=== PATIENT | female | born 1955 | race Caucasian/White ===

== ENCOUNTER 2020-12-20 10:07 | Day surgery (SDC) | payer MEDICARE ==
[2020-12-18 11:38] VITALS: BMI 30.6
--- NOTE | 2020-12-20 08:40 | P.GSHP ---
History of Present Illness H&P Date: 12/20/20 CHIEF COMPLAINT: Colon screen HISTORY OF PRESENT ILLNESS: The patient is a 65-year-old female who presents for colon screen. Lower endoscopy was offered for further evaluation and management. PAST MEDICAL HISTORY: Please see list. PAST SURGICAL HISTORY: Please see list. MEDICATIONS: Please see list. ALLERGIES: Please see list. SOCIAL HISTORY: No illicit drug use FAMILY HISTORY: No reports of Crohn disease or ulcerative colitis. REVIEW OF ORGAN SYSTEMS: CONSTITUTIONAL: No reports of fevers or chills. PHYSICAL EXAM: VITAL SIGNS: Stable GENERAL: Well-developed pleasant in no acute distress. HEENT: No scleral icterus. Extraocular movements grossly intact. Moist buccal mucosa. NECK: Supple without lymphadenopathy. CHEST: Unlabored respirations. Equal bilateral excursions. CARDIOVASCULAR: Regular rate and rhythm. Distal 2+ pulses. ABDOMEN: Soft, nontender, nondistended. MUSCULOSKELETAL: No clubbing, cyanosis, or edema. ASSESSMENT: 1. Colon screen. PLAN: 1. Recommend proceeding with a lower endoscopy Past Medical History Past Medical History: Fibromyalgia Additional Past Medical History / Comment(s): rt. hip wound, ENDOMETRIOSIS, History of Any Multi-Drug Resistant Organisms: None Reported Past Surgical History: Appendectomy, Back Surgery, Hysterectomy Additional Past Surgical History / Comment(s): VAGINAL CYST REMOVED, SURGERY ON NECK C4-C7 FUSION 2009,LUMBAR SURGERY 1999 THORACIC RIB TAKEN OUT 1987 FOR CURVATURE NECK ELIAZAR HINTON. NECK SURGERY WITH METAL IMPLANT Past Anesthesia/Blood Transfusion Reactions: No Reported Reaction Smoking Status: Former smoker - Past Family History Mother Family Medical History: No Reported History Medications and Allergies Home Medications Medication Instructions Recorded Confirmed Type Naproxen Sodium [Aleve] 660 mg PO DAILY PRN 10/04/15 12/18/20 History Menthol [Biofreeze] 1 applic TOPICAL DAILY PRN 12/18/20 12/18/20 History Allergies Allergy/AdvReac Type Severity Reaction Status Date / Time No Known Allergies Allergy Verified 12/18/20 11:03
[~2020-12-20 10:07] MED LIST: LACTATED RINGERS 1,000 ML IV SCH
[2020-12-20 10:45] VITALS: RESP 16; TEMP 97.5
[2020-12-20] MEDS ORDERED: LIDOCAINE 1% (10MG/ML) FOR IV START INTRADERMA ONE (10:45)
[2020-12-20] MEDS ORDERED: PROPOFOL 10 MG/ML 20 ML VIAL IV ONE (11:01)
[2020-12-20] MEDS ORDERED: ONDANSETRON 4 MG/2 ML VIAL ONE (11:29)
--- NOTE | 2020-12-20 11:43 | P.PCN ---
Date of Procedure: 12/20/20 Description of Procedure: PREOPERATIVE DIAGNOSIS: Colonoscopy screening. POSTOPERATIVE DIAGNOSIS: Colonoscopy screening. Diverticulosis, scattered. Diverticulitis, sigmoid colon OPERATION: Colonoscopy to the cecum, ileocecal valve and appendiceal orifice. SURGEON: Jenae Raymond MD. ANESTHESIA: MAC. INDICATIONS: The patient is a 65-year-old female who presents for colonoscopy screening. Benefits and risks were described and informed consent was obtained. DESCRIPTION OF PROCEDURE: The patient had undergone Sutab prep. The patient had been brought into the operating room and laid in the left lateral decubitus position. After adequate intravenous sedation, the rectum was examined with 2% lidocaine jelly. No external hemorrhoids were encountered. The rectal tone was within normal limits. No lesions were palpated in the rectal vault. An Olympus colonoscope was advanced until the cecum, ileocecal valve and appendiceal orifice were clearly viewed. The prep was good. Scattered diverticulosis was encountered with moderate sigmoid diverticulitis. No large adenomatous polyps were found. R etroflexion of the scope demonstrated grade 1 internal hemorrhoids without active bleeding or inflammation. The colon was desufflated. The patient had tolerated the procedure well. Withdrawal time was over 6 minutes. FINDINGS: Aronchick preparation quality scale 1 (1-5) Internal hemorrhoids, grade 1 No external prolapsed hemorrhoids. No arteriovenous malformations. No adenomatous polyps. Sigmoid diverticulitis RECOMMENDATIONS: Lower endoscopy in 2 years, 2022 for inflammatory colitis Plan - Discharge Summary Discharge Rx Participant: No New Discharge Prescriptions: New Ciprofloxacin HCl [Cipro] 500 mg PO Q12HR #20 tablet metroNIDAZOLE [Flagyl] 500 mg PO TID #30 tab Continue Menthol [Biofreeze] 1 applic TOPICAL DAILY PRN PRN Reason: Pain Discontinued Naproxen Sodium [Aleve] 660 mg PO DAILY PRN PRN Reason: Pain Discharge Medication List Menthol [Biofreeze] 1 applic TOPICAL DAILY PRN 12/18/20 [History] Ciprofloxacin HCl [Cipro] 500 mg PO Q12HR #20 tablet 12/20/20 [Rx] metroNIDAZOLE [Flagyl] 500 mg PO TID #30 tab 12/20/20 [Rx] Follow up Appointment(s)/Referral(s): Jenae Ramyond MD [STAFF PHYSICIAN] - 12/26/20 Patient Instructions/Handouts: *Surgery [facility] - (Anesthesia) Endoscopy Discharge Instructions, Diverticulitis (DC), Diverticulitis Diet (DC), Colonoscopy (DC), Diverticulitis Diet (GEN), Diverticulitis (GEN) Activity/Diet/Wound Care/Special Instructions: Repeat colonoscopy in 2 years, 2022 Discharge Disposition: HOME SELF-CARE
[2020-12-20 12:06] VITALS: BP 176/89; PULSE 68
== END 2020-12-20 12:21 | disposition home or self-care (01) ==
LOC: ORWHC2ENDO 10:07
PROVIDERS: ATTEND Surgery Plastic and Reconstructive Surgery
DX: Z12.11 Encounter for screening for malignant neoplasm of colon (principal); K57.30 Diverticulosis of large intestine without perforation or abscess without bleeding; K57.32 Diverticulitis of large intestine without perforation or abscess without bleeding; K64.0 First degree hemorrhoids; M79.7 Fibromyalgia; Z87.42 Personal history of other diseases of the female genital tract; Z90.89 Acquired absence of other organs; Z90.710 Acquired absence of both cervix and uterus; Z98.1 Arthrodesis status; Z87.891 Personal history of nicotine dependence
CPT/HCPCS: J2704; G0121

== ENCOUNTER → 2021-02-14 | Outpatient (CLI) | payer MEDICARE ==
--- NOTE | 2021-02-14 16:49 | BD ---
EXAMINATION TYPE: Axial Bone Density DATE OF EXAM: 02/14/2021 COMPARISON: 08.28.2012 CLINICAL HISTORY: 65 YR OLD FEMALE....ICD-10 CODE: Z78. 0 ASYMP. MENOPAUSAL STATE Height: 61.2 Weight: 159 FRAX RISK QUESTIONS: Secondary Osteoporosis: YES 3. Menopause before 45: YES Current Tobacco Use: QUIT 2013, SMOKES MARIJUANA RISK FACTORS HISTORY OF: Surgery to Spine FUSION WITH HARDWARE IN LUMBAR SPINE AND CERVICAL SPINE Postmenopausal woman: TOTAL HYST AT AGE 23 YRS OLD Take estrogen and/or progesterone medications: TRIED ....NEVER TOOK Hyperparathyroidism: UNKNOWN Adrenal Insufficiency: UNKNOWN MEDICATIONS: Additional Medications: NOTHING TO NOTE HERE THAT APPLIES Additional History: SPINAL SURGERY, PT IS RT HANDED........WILL SCAN LT FOREARM AND BOTH HIPS. EXAM MEASUREMENTS: Bone mineral densitometry was performed using the [employer] System. HX OF FUSIONS Bone mineral density about the R hip (g/cm2): 0.903 Bone mineral density about the L hip (g/cm2): 0.915 T Score values are as follows: -----R Neck: -1.5 -----L Neck: -1.0 -----R Total: -0.8 -----L Total: -0.7 Bone mineral density has: Increased 1.3% since study of: 08.28.2012 FRAX%s: THERE IS A 8.6% CHANCE FOR A MAJOR OSTEOPOROTIC FX AND A 0.9% FOR HIP......PROBABILITY FOR FX IN 10 YRS TIME Bone mineral density about the L Wrist (g/cm2): 0.693 T Score values are as follows: -----Dist. R+U: 0.2 -----Prox. R+U: 0.6 -----Radius total: 0.5 Bone mineral density FIRST SCAN OF LT FOREARM IMPRESSION: Osteopenia (T Score between -2.5 and -1). There is slightly increased risk of fracture and the patient may be considered for treatment. Re-Screen 2-5 years. NOTE: T-SCORE=SD OF THE YOUNG ADULT MEAN.
--- NOTE | 2021-02-14 17:17 | US ---
EXAMINATION TYPE: US duplex aorta DATE OF EXAM: 02/14/2021 COMPARISON: NONE CLINICAL HISTORY: Z13.6 SCREENING FOR CARDIOVASCULAR DISORDER. EXAM MEASUREMENTS: Abdominal Aorta: Proximal: 2.0 x 2.0cm Mid: 1.5 x 1.5cm Distal: 1.3 x 1.2cm Right Iliac: 0.7 x 0.7cm Left Iliac: 0.7 x 0.7cm IMPRESSION: 1. Aorta tapers normally through its visualized course. No fusiform prominence or abdominal aortic an eurysm.
== END | disposition home or self-care (01) ==
LOC: RADUSWWP 07:35
PROVIDERS: ATTEND Family Medicine
DX: Z13.6 Encounter for screening for cardiovascular disorders (principal); Z85.89 Personal history of malignant neoplasm of other organs and systems
CPT/HCPCS: 77080; 93979

== ENCOUNTER → 2022-01-09 | Outpatient (CLI) | payer MEDICARE ==
--- NOTE | 2022-01-09 11:51 | XR ---
EXAMINATION TYPE: XR lumbosacral spine min 4V DATE OF EXAM: 01/09/2022 CLINICAL HISTORY: Surgery 20 years ago with chronic low back pain TECHNIQUE: Frontal, lateral, and oblique images of the lumbar spine are obtained. COMPARISON: Prior lumbar spine x-ray January 16, 2011 FINDINGS: There are 5 lumbar type vertebral bodies redemonstrated. Persistent levoconvex scoliosis c entered at L1-L2 level. Posterior interpedicular rods and screws with artificial disc material L4-L5 level is redemonstrated. Alignment is somewhat straightened on lateral images similar to prior. Sligh t grade 1 retrolisthesis L2 on L3 is present. Vertebral body heights remain preserved. Mild to modera te disc space narrowing at L2-L3 level with mild to moderate anterior spurring on current study. Obli que image values degraded by underlying scoliosis. Mild to moderate overlying arterial vascular calci fication redemonstrated. Persistent stable 8 mm calcification at left L2 transverse process level cou ld reflect phlebolith versus proximal ureter calculus unchanged from 2011 study. IMPRESSION: As above.
== END | disposition home or self-care (01) ==
LOC: RADXRMAIN 10:43
PROVIDERS: ATTEND Family Medicine
DX: M51.26 Other intervertebral disc displacement, lumbar region (principal); M48.061 Spinal stenosis, lumbar region without neurogenic claudication; M99.73 Connective tissue and disc stenosis of intervertebral foramina of lumbar region
CPT/HCPCS: 72110

== ENCOUNTER → 2022-02-06 | Outpatient (CLI) | payer MEDICARE ==
--- NOTE | 2022-02-07 04:24 | MR ---
EXAMINATION TYPE: MR lumbar spine wo con DATE OF EXAM: 02/06/2022 COMPARISON: 03/30/2010 HISTORY: Lower back pain, radiates into buttocks, prior surgery. Multiplanar multi echo imaging of the lumbar spine with no contrast. There is metal artifact from posterior fusion surgery at L4-5. There is a mild posterior concentric d isc herniation at L2-3. No compression fracture. There is mild disc space narrowing at L4-5 and L5-S1 . No evidence of lumbar paraspinal mass. There is some lateral recess stenosis due to facet arthropat hy at L2-3. IMPRESSION: Mild posterior disc herniation at L2-3 with facet arthropathy and lateral recess stenosis. No fractur e seen. Abnormalities at L2-3 are new compared to old exam.
== END | disposition home or self-care (01) ==
LOC: RADMRIMAIN 19:14
PROVIDERS: ATTEND Neurological Surgery
DX: M51.26 Other intervertebral disc displacement, lumbar region (principal); M47.816 Spondylosis without myelopathy or radiculopathy, lumbar region; Z98.1 Arthrodesis status
CPT/HCPCS: 72148

== ENCOUNTER → 2022-02-11 | Outpatient (CLI) | payer MEDICARE ==
--- NOTE | 2022-02-11 07:54 | CT ---
EXAMINATION TYPE: CT lumbar spine wo con CT DLP: 751.00 mGycm, Automated exposure control for dose reduction was used. DATE OF EXAM: 02/11/2022 7:43 AM COMPARISON: MRI lumbar spine 02/06/2022. CLINICAL INDICATION:Female, 66 years old with history of Z98.1;Back pain TECHNIQUE: Multiple axial images were obtained from the midportion of T11 through the sacroiliac kash nts. Soft tissue and bone windows in coronal and sagittal planes were obtained and reviewed. FINDINGS: Alignment: There are 5 lumbar type vertebral bodies. Levoscoliotic curvature of the lumbar spine with apex at L4. Mild retrolisthesis of L2 on L3. Bone: Postsurgical changes with bilateral pedicular screws and rods involving the L4 and L5 vertebral bodies. Laminectomy changes demonstrated at L4-L5. No evidence of fracture is identified. Discs: T12-L1: No spinal canal or neural foraminal stenosis is identified. L1-L2: No spinal canal or neural foraminal stenosis is identified. L2-L3: Broad-based disc bulge with mild effacement of the anterior thecal sac as demonstrated on rece nt MRI. Facet arthropathy demonstrated with mild foraminal stenosis bilaterally. L3-L4: No spinal canal or neural foraminal stenosis is identified. L4-L5: Mild disc space narrowing identified. No significant central canal stenosis. The neural praveena en are patent bilaterally. L5-S1: No spinal canal or neural foraminal stenosis is identified. Other: Atherosclerotic calcification of the aorta. IMPRESSION: 1. No evidence of fracture of the lumbar spine. 2. Disc bulge with mild spinal canal stenosis at L2-L3. There is facet arthropathy contributing to mi ld bilateral foraminal stenosis at this level. 3. Postsurgical changes L4-L5.
== END | disposition home or self-care (01) ==
LOC: RADCTMAIN 06:59
PROVIDERS: ATTEND Neurological Surgery
DX: M51.26 Other intervertebral disc displacement, lumbar region (principal); M99.73 Connective tissue and disc stenosis of intervertebral foramina of lumbar region; Z98.1 Arthrodesis status
CPT/HCPCS: 72131

== ENCOUNTER 2023-03-06 07:22 | Day surgery (SDC) | payer MEDICARE ==
[2023-03-04 12:32] VITALS: BMI 31.5
[2023-03-06] MEDS ORDERED: LACTATED RINGERS 1,000 ML IV SCH (07:34)
[2023-03-06 07:47] VITALS: RESP 16; TEMP 98.3
[2023-03-06] MEDS ORDERED: PROPOFOL 10 MG/ML 20 ML VIAL IV ONE (08:14)
--- NOTE | 2023-03-06 08:15 | P.GSHP ---
History of Present Illness H&P Date: 03/06/23 CHIEF COMPLAINT: GERD and colon screen HISTORY OF PRESENT ILLNESS: The patient is a 67-year-old male who presents with gastroesophageal reflux disease and need for colon screen. Upper and lower endoscopy were offered for further evaluation and management. PAST MEDICAL HISTORY: Please see list. PAST SURGICAL HISTORY: Please see list. MEDICATIONS: Please see list. ALLERGIES: Please see list. SOCIAL HISTORY: No illicit drug use FAMILY HISTORY: No reports of Crohn disease or ulcerative colitis. REVIEW OF ORGAN SYSTEMS: CONSTITUTIONAL: No reports of fevers or chills. GI: Denies any blood in stools or constipation. PHYSICAL EXAM: VITAL SIGNS: Stable GENERAL: Well-developed pleasant in no acute distress. HEENT: No scleral icterus. Extraocular movements grossly intact. Moist buccal mucosa. NECK: Supple without lymphadenopathy. CHEST: Unlabored respirations. Equal bilateral excursions. CARDIOVASCULAR: Regular rate and rhythm. Distal 2+ pulses. ABDOMEN: Soft, nondistended. MUSCULOSKELETAL: No clubbing, cyanosis, or edema. ASSESSMENT: 1. Gastroesophageal reflux disease 2. Colon screen. PLAN: 1. Recommend proceeding with an upper and lower endoscopy Past Medical History Past Medical History: Fibromyalgia, Hyperlipidemia Additional Past Medical History / Comment(s): hx scoliosis., diverticulosis., occasional nausea, pain clinic procedures., I & D OF abdominal wall abscess with wound care center tx. History of Any Multi-Drug Resistant Organisms: None Reported Past Surgical History: Appendectomy, Back Surgery, Hysterectomy Additional Past Surgical History / Comment(s): VAGINAL CYST, CERVICAL FUSION C4- C7 FUSION WITH HARDWARE 2009, LUMBAR SURGERY WITH HARDWARE 1999.,THORACIC RIB TAKEN OUT 1987 FOR CURVATURE NECK ([facility]). , RECEIVES PAIN PROCEDURE INJECTIONS . Past Anesthesia/Blood Transfusion Reactions: No Reported Reaction Past Psychological History: No Psychological Hx Reported Smoking Status: Former smoker Past Alcohol Use History: None Reported Additional Past Alcohol Use History / Comment(s): QUIT SMOKING 2013 Past Drug Use History: Marijuana Additional Drug Use History / Comment(s): SMOKES MARIJUANA DAILY - Past Family History Mother Family Medical History: No Reported History Medications and Allergies Home Medications Medication Instructions Recorded Confirmed Type Acetaminophen [Tylenol Arthritis] 1,300 mg PO DIRECTED PRN 03/04/23 03/06/23 History Multivit-Min/FA/Lycopen/Lutein 1 each PO DAILY 03/04/23 03/04/23 History [Centrum Silver Tablet] Rosuvastatin [Crestor] 20 mg PO DAILY 03/04/23 03/06/23 History Allergies Allergy/AdvReac Type Severity Reaction Status Date / Time No Known Allergies Allergy Verified 03/04/23 12:08 Surgical - Exam Vital Signs Temp Pulse Resp BP Pulse Ox 98.3 F 70 16 160/89 98 03/06/23 07:38 03/06/23 07:38 03/06/23 07:38 03/06/23 07:38 03/06/23 07:38
--- NOTE | 2023-03-06 08:35 | P.PCN ---
Date of Procedure: 03/06/23 Description of Procedure: PREOPERATIVE DIAGNOSIS: Diverticulitis POSTOPERATIVE DIAGNOSIS: Sigmoid stricture due to sigmoid diverticulosis Sigmoid colon polyp OPERATION: Colonoscopy to the sigmoid colon. SURGEON: Jenae Raymond MD. ANESTHESIA: MAC. INDICATIONS: The patient is a 67-year-old female who presents with change in bowel habits and history of diverticulitis. Her last colonoscopy was more than 5 years ago. Benefits and risks were described and informed consent was obtained. DESCRIPTION OF PROCEDURE: The patient had undergone Sutab prep. She had been brought into the operating room and laid in the left lateral decubitus position. After adequate intravenous sedation, the rectum was examined with 2% lidocaine jelly. No external hemorrhoids were encountered. The rectal tone was loose. No lesions were palpated in the rectal vault. An Olympus colonoscope was advanced along the rect um to a very tortuous sigmoid colon. The scope was then exchanged for a pediatric colonoscope. Despite multiple maneuvers, the sigmoid colon had severe tortuosity preventing further advancement of scope. A stricture was identified along the sigmoidoscope prohibited advancement of the scope. The scope was passed to 30 cm from the anal verge. Inflammatory sigmoid colon polyps were identified. As the patient posed high risk for perforation with persistence of the procedure, the procedure was discontinued. The colon was desufflated. The patient had tolerated the procedure well. Withdrawal time was over 6 minutes. FINDINGS: Aronchik preparation quality scale 2 (1-5) Tortuous sigmoid colon with stricture preventing further advancement of the scope. No external prolapsed hemorrhoids, grade 1 Internal hemorrhoids, grade 1 Scope advanced to sigmoid colon at 30 cm. No arteriovenous malformations. Inflammatory sigmoid colon polyp, 3 mm No focal colitis. RECOMMENDATIONS: Completion of colonoscopy evaluation with barium enema. Repeat colonoscopy 2 years, 2024
--- NOTE | 2023-03-06 08:43 | P.PCN ---
Date of Procedure: 03/06/23 Description of Procedure: PREOPERATIVE DIAGNOSIS: Gastrointestinal bleeding POSTOPERATIVE DIAGNOSIS: Acute gastric ulcers with bleeding Gastroesophageal reflux disease. Gastritis with bleeding Diaphragmatic hiatal hernia OPERATION: Esophagogastroduodenoscopy with biopsies along antrum and duodenum SURGEON: Jenae Raymond MD ANESTHESIA: MAC. INDICATIONS: The patient is a 67-year-old female who presents with GI bleeding. Benefits and risks of the procedure were described. Informed consent was obtained. DESCRIPTION: The patient was brought into the endoscopy suite and laid in the left lateral decubitus position. An Olympus gastroscope was passed along the posterior oropharynx down to the distal esophagus where the squamocolumnar junction was encountered at 35 cm from the incisors. The stomach was entered and no bile reflux was found. Additional findings are listed below. Biopsies with cold forceps were obtained of the antrum. The first through third portion of the duodenum was examined. Retroflexion of the scope confirmed Hill grade 3 lower esophageal valve. The squamocolumnar junction demonstrated LA grade B erosive esophagitis. The stomach was desufflated. The patient tolerated the procedure well. FINDINGS: Squamocolumnar junction 35 cm from the incisors. Diaphragmatic hiatus at 40 cm. Hiatal hernia, 5 cm Hill grade 3 lower esophageal valve. LA grade B erosive esophagitis. Biopsies obtained of the duodenum. Chronic gastritis with biopsies obtained. RECOMMENDATIONS: Omeprazole 40 mg daily Carafate 1 g twice a day Upper endoscopy as needed. Plan - Discharge Summary New Discharge Prescriptions: New Sucralfate [Carafate] 1 gm PO BID #60 tablet Omeprazole [PriLOSEC] 40 mg PO DAILY #90 cap Continue Rosuvastatin [Crestor] 20 mg PO DAILY Acetaminophen [Tylenol Arthritis] 1,300 mg PO DIRECTED PRN PRN Reason: Pain Multivit-Min/FA/Lycopen/Lutein [Centrum Silver Tablet] 1 each PO DAILY Discharge Medication List Acetaminophen [Tylenol Arthritis] 1,300 mg PO DIRECTED PRN 03/04/23 [History] Multivit-Min/FA/Lycopen/Lutein [Centrum Silver Tablet] 1 each PO DAILY 03/04/23 [History] Rosuvastatin [Crestor] 20 mg PO DAILY 03/04/23 [History] Omeprazole [PriLOSEC] 40 mg PO DAILY #90 cap 03/06/23 [Rx] Sucralfate [Carafate] 1 gm PO BID #60 tablet 03/06/23 [Rx] Follow up Appointment(s)/Referral(s): Jenae Raymond MD [STAFF PHYSICIAN] - 03/25/23 11:00 am Patient Instructions/Handouts: Diet for Stomach Ulcers and Gastritis (GEN), Diverticulitis (GEN) Activity/Diet/Wound Care/Special Instructions: Repeat colonoscopy 2 years, 2024 Discharge Disposition: HOME SELF-CARE
[2023-03-06 08:58] VITALS: BP 135/85; PULSE 71
--- NOTE | 2023-03-06 16:39 | FL ---
EXAMINATION TYPE: FL barium enema DATE OF EXAM: 03/06/2023 2:24 PM CLINICAL INDICATION:Female, 67 years old with history of Sigmoid stricture, to sigmoid colon, no bx; COMPARISON: None TECHNIQUE: The procedure was explained and patient history elicited. All patient questions were answ ered prior to beginning. Multiple spot fluoroscopic images of the colon were obtained after the recta l administration of liquid barium as the contrast agent. Multiple postprocedural overhead images, w ere obtained and reviewed. Fluoroscopic time: 1 minute 13 seconds Fluoroscopic images: 0 Radiographs taken: 33 DAP: Not reported by seen [email or web address] FINDINGS: The car worker helper abdominal radiograph demonstrates a normal bowel gas pattern without dilated loo ps of small or large bowel. There is no evidence for organomegaly or pneumoperitoneum. No abnormal calcifications. The visualized osseous structures are intact. Fixation hardware in the lower lumbar spine appears intact. Opacified small bowel limits evaluation the colon. The colon demonstrates normal course and contour without evidence of focal stricture, internal fillin g defects. Few scattered colonic diverticula. Postevacuation images are unremarkable. IMPRESSION: 1. Limited evaluation of the bowel and post procedural imaging due to extension of contrast into the small bowel. No evidence for abnormal stricture or mass lesion within the sigmoid colon. 2. Colonic diverticula.
== END 2023-03-06 09:39 | disposition home or self-care (01) ==
LOC: ORWHC2ENDO 07:22
PROVIDERS: ATTEND Surgery Plastic and Reconstructive Surgery
DX: Z12.11 Encounter for screening for malignant neoplasm of colon (principal); K21.00 Gastro-esophageal reflux disease with esophagitis, without bleeding; K57.30 Diverticulosis of large intestine without perforation or abscess without bleeding; K56.699 Other intestinal obstruction unspecified as to partial versus complete obstruction; K63.5 Polyp of colon; K29.50 Unspecified chronic gastritis without bleeding; K25.4 Chronic or unspecified gastric ulcer with hemorrhage; K44.9 Diaphragmatic hernia without obstruction or gangrene; M79.7 Fibromyalgia; E78.5 Hyperlipidemia, unspecified; Z90.710 Acquired absence of both cervix and uterus; Z90.49 Acquired absence of other specified parts of digestive tract; Z87.891 Personal history of nicotine dependence
CPT/HCPCS: 88305; 74270; 43239; G0104; J2704; 45330; 45378

== ENCOUNTER → 2023-05-20 | Day surgery (SDC) | payer MEDICARE ==
[2023-05-19 09:49] VITALS: BMI 29.2
[~2023-05-20] MED LIST changes: +ALPRAZolam 0.25 MG TAB PO PRN; +ALPRAZolam 0.5 MG TAB PO PRN; +ASPIRIN 325 MG TAB PO STA; +HEPARIN SODIUM 1,000 UN/ML (10ML VL) IV ONE; +HEPARIN SODIUM 1,000 UN/ML (10ML VL) ONE; +HEPARIN SODIUM,PORCINE (1 ML) 2,500 UNIT in SODIUM CHLORIDE 0.9% 250 ML IRRIGATION PRN; +HEPARIN SODIUM,PORCINE 10,000 UNIT in SODIUM CHLORIDE 0.9% 1,000 ML IRRIGATION PRN; +IOPAMIDOL-370 100ML BTL INJ ONE; -LACTATED RINGERS 1,000 ML IV SCH; +LIDOCAINE 1% INJ 10MG/ML (5 ML VIAL-PF) SQ ONE; +MIDAZOLAM 2 MG/2 ML VIAL IVP ONE; +NITROGLYCERIN SL TABS 0.4 MG TAB SUBLINGUAL PRN; +RX INFO: IV CONTRAST WAS GIVEN 1 EACH MISC MISCELLANE PRN; +SODIUM CHLORIDE 0.9% 1,000 ML IV SCH; +SODIUM CHLORIDE 0.9% 1,000 ML in EMPTY BAG 1 BAG IV SCH; +VERAPAMIL 2.5 MG/ML 2 ML AMP ONE; +VERAPAMIL SYRINGE (5 MG/10 ML) INTRAARTER ONE
[2023-05-20 06:34] LABS: Basophils % (A) 0 %; Eosinophils # (A) 0.2 k/uL (0-0.7); Eosinophils % (A) 2 %; HCT 42.1 % (34.0-46.0); HGB 13.8 gm/dL (11.4-16.0); Lymphocytes # (A) 2.6 k/uL (1.0-4.8); Lymphocytes % (A) 30 %; MCH 29.7 pg (25.0-35.0); MCHC 32.7 g/dL (31.0-37.0); MCV 90.8 fL (80.0-100.0); Mean Platelet Volume 9.5; Monocytes # (A) 0.5 k/uL (0-1.0); Monocytes % (A) 5 %; Neutrophils # (A) 5.2 k/uL (1.3-7.7); Neutrophils % (A) 59 %; Platelet Count 198 k/uL (150-450); RBC 4.63 m/uL (3.80-5.40); RDW 12.4 % (11.5-15.5); WBC 8.8 k/uL (3.8-10.6)
[2023-05-20 06:42] LABS: African American GFR (CKD) >90 (>60 ml/min/1.73 sqM); Anion Gap 10 mmol/L; Blood Urea Nitrogen 12 mg/dL (7-17); Calcium 10.4 mg/dL (8.4-10.2); Carbon Dioxide 22 mmol/L (22-30); Chloride 108 mmol/L (98-107); Glucose 101 mg/dL (74-99); Non-African American GFR(CKD) >90 (>60 ml/min/1.73 sqM); Potassium 4.1 mmol/L (3.5-5.1); Sodium 140 mmol/L (137-145)
[2023-05-20 07:09] VITALS: RESP 16; TEMP 97.1
--- NOTE | 2023-05-20 08:03 | P.PCN ---
Date of Procedure: 05/20/23 Operative Findings: CARDIAC CATHETERIZATION PERFORMING PHYSICIAN: Ricardo Rome MD, RPVI PROCEDURE PERFORMED: 1. Selective right and left coronary angiogram 2. Left heart catheterization 3. Ultrasound-guided access of the right radial artery INDICATION: Abnormal myocardial perfusion imaging stress test in the 67-year-old female patient who was seen for preoperative cardiac assessment before noncardiac surgery. The stress test showed at least moderate area of reversibility anteriorly. COMPLICATION: None APPROACH: Right radial artery LEVEL OF SEDATION: Moderate with a sedation length of 10 minutes PROCEDURE DESCRIPTION: After obtaining an informed consent, the patient was brought to cardiac track laborer. Local anesthesia was performed using lidocaine subcutaneously. The right radial artery was cannulated using Seldinger technique, the guidewire passed easily, following that we advanced a 5-Nigerian sheath dilator assembly, the wire and dilator were removed and sheath was flushed. Following that, 2 mg of verapamil along with 5000 unit heparin were given. Selective right and left coronary angiogram using a 6-Nigerian JR4 and JL 3.5 catheters. Following that we did left heart catheterization using 6-Nigerian pigtail cathete r. The procedure was completed there was no complication. SELECTIVE CORONARY ANGIOGRAM: The right coronary artery: Large caliber vessel and a dominant vessel was mild disease only Left main: Is angiographically normal. Bifurcates into an LCx and LAD The left circumflex: Large caliber vessel nondominant vessel. The LCx has mild disease only. Gives rises into the first and second obtuse marginal branches and both appeared to be angiographically normal The left anterior descending artery: Large caliber vessel was mild disease only. It is calcified in the proximal portion. Gives rises into a large diagonal branch which appeared to be angiographically normal HEMODYNAMICS: The LVEDP was 12 mmHg was no significant gradient across aortic valve CONCLUSION: 1. Mild CAD 2. Normal left-sided filling pressure POSTPROCEDURE MANAGEMENT: Medical treatment
[2023-05-20 12:46] VITALS: BP 142/82; PULSE 68
== END ==
LOC: CATHCVL 05:46
PROVIDERS: ATTEND Internal Medicine Interventional Cardiology
DX: I25.10 Atherosclerotic heart disease of native coronary artery without angina pectoris (principal); E78.5 Hyperlipidemia, unspecified; F17.210 Nicotine dependence, cigarettes, uncomplicated; F12.90 Cannabis use, unspecified, uncomplicated; Z79.899 Other long term (current) drug therapy
CPT/HCPCS: 93458; 76937; 80048; 85025; C1769; C1894; J2250; J2001; J1644; Q9967

== ENCOUNTER 2023-06-25 13:53 | Inpatient (IN) | payer MEDICARE ==
--- NOTE | 2023-06-25 08:58 | P.GSHP ---
History of Present Illness H&P Date: 06/25/23 CHIEF COMPLAINT: Sigmoid diverticulitis HISTORY OF PRESENT ILLNESS: The patient is a 67-year-old female who presents with change in bowel habits diverticulosis and diverticulitis for over 6 months. She reports intermittent gas bloat. She presents for surgical options, sigmoid colectomy. PAST MEDICAL HISTORY: Please see list. PAST SURGICAL HISTORY: Please see list. MEDICATIONS: Please see list. ALLERGIES: Please see list. SOCIAL HISTORY: No illicit drug use FAMILY HISTORY: No reports of Crohn disease or ulcerative colitis. REVIEW OF ORGAN SYSTEMS: CONSTITUTIONAL: Denies any fever or chills. HEENT: Denies any trouble with vision or nosebleeds. No difficulty swallowing. LYMPHATIC: The patient denies any lumps and bumps around the neck. ENDOCRINE: Denies any thyroid disorders. Has blood sugar glucose intolerance. RESPIRATORY: Denies pneumonia. Denies any troubles with breathing or dyspnea on exertion. CARDIOVASCULAR: Denies any chest pain, palpitations, or recent heart attacks. GASTROINTESTINAL: Has chronic diverticulitis. GENITOURINARY: Has increased urinary frequency. MUSCULOSKELETAL: Has back pain, stiffness, joint arthritis. NEUROLOGIC: Denies any numbness or tingling along the distal extremities. No seizure disorders or headaches. PSYCHIATRIC: Denies depression or suidical ideation. HEMATOLOGIC: Denies any abnormal bleeding or bruising. PHYSICAL EXAM: VITAL SIGNS: Stable GENERAL: Well-developed pleasant in no acute distress. HEENT: No scleral icterus. Extraocular movements grossly intact. Moist buccal mucosa. NECK: Supple without lymphadenopathy. CHEST: Unlabored respirations. Equal bilateral excursions. CARDIOVASCULAR: Regular rate and rhythm. Distal 2+ pulses. ABDOMEN: Soft, nontender, nondistended. MUSCULOSKELETAL: No clubbing, cyanosis, or edema. NERUO: Cranial nerves 2-12 grossly intact. PSYCH: Alert and oriented to person place and time. ASSESSMENT: 1. Sigmoid diverticulosis with diverticulitis PLAN: 1. Benefits and risks of surgical robotic sigmoid resection was reviewed in detail. Robotic-assisted approach was also described. 2. Enhanced colon recovery program. 3. DVT prophylaxis. 4. Antibiotic prophylaxis. 5. Inpatient hospitalization greater than 2 nights. 6. Recommend colonoscopy for preoperative tattoo Past Medical History Past Medical History: Fibromyalgia, Hyperlipidemia Additional Past Medical History / Comment(s): hx scoliosis., diverticulosis., occasional nausea, pain clinic procedures., I & D OF abdominal wall abscess with wound care center tx. History of Any Multi-Drug Resistant Organisms: None Reported Past Surgical History: Appendectomy, Back Surgery, Hysterectomy Additional Past Surgical History / Comment(s): VAGINAL CYST, CERVICAL FUSION C4- C7 FUSION WITH HARDWARE 2009, LUMBAR SURGERY WITH HARDWARE 1999.,THORACIC RIB TAKEN OUT 1987 FOR CURVATURE NECK ([facility]). , RECEIVES PAIN PROCEDURE INJECTIONS . Past Anesthesia/Blood Transfusion Reactions: No Reported Reaction Smoking Status: Former smoker - Past Family History Mother Family Medical History: No Reported History Medications and Allergies Home Medications Medication Instructions Recorded Confirmed Type Rosuvastatin [Crestor] 10 mg PO DAILY 03/04/23 05/28/23 History Omeprazole [PriLOSEC] 40 mg PO DAILY #90 cap 03/06/23 05/28/23 Rx Allergies Allergy/AdvReac Type Severity Reaction Status Date / Time No Known Allergies Allergy Verified 05/28/23 15:19
[~2023-06-25 13:53] MED LIST changes: -ALPRAZolam 0.25 MG TAB PO PRN; -ALPRAZolam 0.5 MG TAB PO PRN; -ASPIRIN 325 MG TAB PO STA; +Antibiotics per Pharmacy 1 EACH MISC MISCELLANE PRN; -HEPARIN SODIUM 1,000 UN/ML (10ML VL) IV ONE; -HEPARIN SODIUM 1,000 UN/ML (10ML VL) ONE; -HEPARIN SODIUM,PORCINE (1 ML) 2,500 UNIT in SODIUM CHLORIDE 0.9% 250 ML IRRIGATION PRN; -HEPARIN SODIUM,PORCINE 10,000 UNIT in SODIUM CHLORIDE 0.9% 1,000 ML IRRIGATION PRN; +HEPARIN SODIUM,PORCINE 5,000 UNIT/ML 1 ML VIAL SQ PRN; -IOPAMIDOL-370 100ML BTL INJ ONE; +LIDOCAINE 1% (10MG/ML) FOR IV START INTRADERMA PRN; -LIDOCAINE 1% INJ 10MG/ML (5 ML VIAL-PF) SQ ONE; -MIDAZOLAM 2 MG/2 ML VIAL IVP ONE; -NITROGLYCERIN SL TABS 0.4 MG TAB SUBLINGUAL PRN; +PEG 3350 (420 GM/BTL) + LYTES 4,000 ML BOTTLE PO ONE; -RX INFO: IV CONTRAST WAS GIVEN 1 EACH MISC MISCELLANE PRN; -SODIUM CHLORIDE 0.9% 1,000 ML IV SCH; -SODIUM CHLORIDE 0.9% 1,000 ML in EMPTY BAG 1 BAG IV SCH; -VERAPAMIL 2.5 MG/ML 2 ML AMP ONE; -VERAPAMIL SYRINGE (5 MG/10 ML) INTRAARTER ONE
[2023-06-25] MEDS: LACTATED RINGERS 1,000 ML IV SCH ×5 (14:19→18:36)
[2023-06-25 15:04] LABS: Basophils % (A) 0 %; Eosinophils # (A) 0.1 k/uL (0-0.7); Eosinophils % (A) 1 %; HCT 43.8 % (34.0-46.0); HGB 14.6 gm/dL (11.4-16.0); Lymphocytes # (A) 2.2 k/uL (1.0-4.8); Lymphocytes % (A) 21 %; MCH 29.8 pg (25.0-35.0); MCHC 33.3 g/dL (31.0-37.0); MCV 89.4 fL (80.0-100.0); Mean Platelet Volume 10.6; Monocytes # (A) 0.5 k/uL (0-1.0); Monocytes % (A) 5 %; Neutrophils # (A) 7.3 k/uL (1.3-7.7); Neutrophils % (A) 70 %; Platelet Count 222 k/uL (150-450); RDW 12.5 % (11.5-15.5); WBC 10.5 k/uL (3.8-10.6)
[2023-06-25] MEDS ORDERED: PROPOFOL 10 MG/ML 20 ML VIAL IV ONE (15:23)
[2023-06-25] MEDS ORDERED: LIDOCAINE 1% INJ 10MG/ML (20 ML MDV) ONE (15:23)
[2023-06-25] MEDS ORDERED: SODIUM CHLORIDE 0.9% 2,000 ML IV ONE (15:37)
--- NOTE | 2023-06-25 15:44 | P.PCN ---
Date of Procedure: 06/25/23 Description of Procedure: PREOPERATIVE DIAGNOSIS: Sigmoid diverticulosis history of diverticulitis POSTOPERATIVE DIAGNOSIS: Sigmoid diverticulosis history of diverticulitis Constipation OPERATION: Colonoscopy to the sigmoid colon. SURGEON: Jenae Raymond MD. ANESTHESIA: MAC. INDICATIONS: The patient is a 67-year-old female who presents with symptomatic diverticulitis and presents for surgical tattooing prior to surgery. Benefits and risks were described and informed consent was obtained. DESCRIPTION OF PROCEDURE: The patient had undergone Sutab prep. She had been brought into the operating room and laid in the left lateral decubitus position. After adequate intravenous sedation, the rectum was examined with 2% lidocaine jelly. External hemorrhoids were encountered. Stool was palpable in the rectal vault. Colonoscope was advanced with multiple semisolid stool within the sigmoid colon. Due to poor prep, procedure was terminated. The colon was desufflated. The patient had tolerated the procedure well. Withdrawal time was over 6 minutes. FINDINGS: [place] preparation quality scale 5 (1-5) Solid stool limiting colonoscopy RECOMMENDATIONS: Rectal enema advised with oral prep
[2023-06-25] MEDS: metroNIDAZOLE 500 MG TAB PO SCH ×3 (16:59→22:12)
[2023-06-25] MEDS: PANTOPRAZOLE 40 MG TABLET PO SCH (16:59)
[2023-06-25] MEDS: NEOMYCIN 500 MG TAB PO SCH ×3 (16:59→22:12)
[2023-06-25] MEDS ORDERED: NA PHOS,M-B/NA PHOS,DI-BA 133 ML ENEMA RECTAL ONE (17:12)
[2023-06-25] MEDS: ONDANSETRON 4 MG/2 ML VIAL IVP SCH ×2 (18:06→23:26)
[2023-06-25] MEDS: SODIUM CHLORIDE 0.9% 1,000 ML IV SCH (18:08)
[2023-06-25] MEDS ORDERED: TEMAZEPAM 15 MG CAP PO ONE (21:00)
[2023-06-25 22:29] LABS: ALT 24 U/L (4-34); AST 31 U/L (14-36); African American GFR (CKD) >90 (>60 ml/min/1.73 sqM); Albumin 4.7 g/dL (3.5-5.0); Alkaline Phosphatase 91 U/L (38-126); Anion Gap 12 mmol/L; Blood Urea Nitrogen 19 mg/dL (7-17); Calcium 10.1 mg/dL (8.4-10.2); Carbon Dioxide 22 mmol/L (22-30); Chloride 108 mmol/L (98-107); Glucose 97 mg/dL (74-99); Non-African American GFR(CKD) >90 (>60 ml/min/1.73 sqM); Potassium 3.9 mmol/L (3.5-5.1); Sodium 142 mmol/L (137-145); Total Bilirubin 0.4 mg/dL (0.2-1.3); Total Protein 7.4 g/dL (6.3-8.2)
[2023-06-26] MEDS ORDERED: metroNIDAZOLE-NS PMX 500 MG in SALINE 1 100ML.BAG IVPB PRN (05:00)
[2023-06-26] MEDS: ONDANSETRON 4 MG/2 ML VIAL IVP SCH ×4 (05:06→23:39)
[2023-06-26] MEDS: SODIUM CHLORIDE 0.9% 1,000 ML IV SCH ×2 (06:16→19:15)
[2023-06-26] MEDS ORDERED: MELOXICAM 7.5 MG TAB PO PRN (07:00)
[2023-06-26] MEDS ORDERED: ALVIMOPAN 12 MG CAPSULE PO PRN (07:00)
[2023-06-26] MEDS ORDERED: ACETAMINOPHEN TAB 500 MG TAB PO PRN (07:00)
[2023-06-26] MEDS: PANTOPRAZOLE 40 MG TABLET PO SCH ×2 (07:36→11:37)
[2023-06-26 10:03] LABS: African American GFR (CKD) >90 (>60 ml/min/1.73 sqM); Anion Gap 9 mmol/L; Blood Urea Nitrogen 12 mg/dL (7-17); Calcium 9.4 mg/dL (8.4-10.2); Carbon Dioxide 23 mmol/L (22-30); Chloride 108 mmol/L (98-107); Glucose 72 mg/dL (74-99); Non-African American GFR(CKD) >90 (>60 ml/min/1.73 sqM); Potassium 4.2 mmol/L (3.5-5.1); Sodium 140 mmol/L (137-145)
[2023-06-26 10:05] LABS: Basophils % (A) 0 %; Eosinophils # (A) 0.1 k/uL (0-0.7); Eosinophils % (A) 1 %; HGB 13.2 gm/dL (11.4-16.0); Hypochromasia Slight; Lymphocytes # (A) 2.5 k/uL (1.0-4.8); Lymphocytes % (A) 31 %; MCH 30.6 pg (25.0-35.0); MCHC 33.1 g/dL (31.0-37.0); MCV 92.3 fL (80.0-100.0); Mean Platelet Volume 11.5; Monocytes # (A) 0.4 k/uL (0-1.0); Monocytes % (A) 5 %; Neutrophils # (A) 4.9 k/uL (1.3-7.7); Neutrophils % (A) 60 %; Platelet Count 175 k/uL (150-450); RBC 4.33 m/uL (3.80-5.40); RDW 12.4 % (11.5-15.5); WBC 8.2 k/uL (3.8-10.6)
[2023-06-26] MEDS ORDERED: LACTATED RINGERS 1,000 ML IV ONE ×2 (11:18→14:25)
[2023-06-26] MEDS ORDERED: DEXAMETHASONE SOD PHOSPHATE 4 MG/ML 1 ML VIAL IVP ONE (11:40)
[2023-06-26] MEDS ORDERED: ONDANSETRON 4 MG/2 ML VIAL IVP ONE (11:41)
[2023-06-26] MEDS ORDERED: MIDAZOLAM 2 MG/2 ML VIAL IVP ONE (11:52)
[2023-06-26 12:13] VITALS: RESP 16
--- NOTE | 2023-06-26 12:24 | P.ANPRN ---
Procedure Note - Anesthesia - Nerve Block Performed Bilateral Erector Spinae Single Time Out Performed: Yes Date of Procedure: 06/26/23 Procedure Start Time: 11:52 Procedure Stop Time: 12:05 Location of Patient: PreOp Indication: Acute Post-Operative Pain Sedation Type: Sedate with meaningful contact maintained Preparation: Sterile Prep, Sterile Dressing Position: Prone Catheter: None Needle Types: Facet Needle Gauge: 20 Ultrasound used to visualize needle placement: Yes Ultrasound used to observe medication spread: Yes Injectate: Other (see comment) (ropivacaine 0.25% + decadron 4 mg 30 ml per side) Blood Aspirated: No Pain Paresthesia on Injection Noted: No Resistance on Injection: Normal Image Stored and Saved: Yes Events: Uneventful and Well Tolerated
[2023-06-26] MEDS ORDERED: ROPIVACAINE 5 MG/ML 30 ML VIAL ONE (12:50)
[2023-06-26] MEDS ORDERED: SUCCINYLCHOLINE CHLORIDE 200 MG/10 ML VIAL IV ONE (12:50)
[2023-06-26] MEDS ORDERED: GLYCOPYRROLATE 0.2 MG/ML 2 ML VIAL ONE (12:50)
[2023-06-26] MEDS ORDERED: fentaNYL (PF) 50 MCG/ML 2 ML AMP ONE (12:50)
[2023-06-26] MEDS ORDERED: MIDAZOLAM 2 MG/2 ML VIAL ONE (12:50)
[2023-06-26] MEDS ORDERED: NEOSTIGMINE 1 MG/ML 10 ML VIAL ONE (12:50)
[2023-06-26] MEDS ORDERED: DEXAMETHASONE SOD PHOSPHATE 4 MG/ML 1 ML VIAL ONE (12:50)
[2023-06-26] MEDS ORDERED: LIDOCAINE 1% INJ 10MG/ML (20 ML MDV) ONE (12:50)
[2023-06-26] MEDS ORDERED: PROPOFOL 10 MG/ML 20 ML VIAL IV ONE (12:50)
[2023-06-26] MEDS ORDERED: ROCURONIUM 10 MG/ML (5 ML VIAL) IV ONE (12:50)
[2023-06-26] MEDS ORDERED: KETAMINE HCL IN 0.9 % NACL 50 MG/5 ML SYRINGE ONE (12:50)
[2023-06-26] MEDS ORDERED: LIDOCAINE 0.5%-EPI 1:200,000 50 ML VIAL SQ ONE ×2 (12:55→13:42)
[2023-06-26] MEDS ORDERED: NALOXONE 0.4 MG/ML 1 ML VIAL IV PRN (16:50)
--- NOTE | 2023-06-26 16:50 | P.OP ---
Date of Procedure: 06/26/23 Description of Procedure: SURGEON: MARIELLA LONG MD PREOPERATIVE DIAGNOSES: 1. Sigmoid diverticulitis with chronic abdominal pain 2. Hypertensive heart disease 3. Hyperlipidemia 4. Sigmoid volvulus POSTOPERATIVE DIAGNOSES: 1. Sigmoid diverticulitis, chronic 2. Hypertensive heart disease 3. Hyperlipidemia OPERATION: 1. Robotic-assisted daVinci Xi sigmoid colectomy with low anterior resection using 29 mm Ethicon powered stapler 2. Intraoperative colonoscopy used for sigmoidoscopy Anesthesia: GETA, local, regional Estimated Blood Loss (ml): 50 Pathology: 1. Sigmoid colon 2. EEA donuts 3. Proximal colotomy Condition: stable Disposition: floor COMPLICATIONS: None. Operative Findings: 1. Redundant sigmoid colon without active volvulus 2. Anastomosis with EEA stapler 29 mm 3. No tension or torsion along the anastomosis 4. Doughnuts thick and both sides and viable 5. Moderately redundant sigmoid colon without tension at anastomosis 6. Negative leak test with viable anastomosis. INDICATIONS: The patient is a 67-year-old female who presents with change in bowel habits, sigmoid diverticulosis with tortuous colon. She had prior to the colonoscopy with findings of diverticulosis including intermittent volvulus. Benefits and risks of surgical intervention was described in detail including infection, injury to the ureter, colostomy creation, possibility for additional surgery was discussed at length. Informed consent was obtained. All questions of the patient and family were answered. DESCRIPTION: Earlier the patient had undergone a bowel prep using the enhanced colon recovery program. The patient was transferred to the operating room and placed supine. After general induction, the abdomen was prepped and draped in standard sterile fashion. Ioban was placed along the abdomen to minimize any contamination of skin floor. A Banda catheter was placed. After a timeout protocol was performed, attention was then brought to the left upper quadrant whereby a 0 degree 5 mm laparoscopic trocar entry was performed. The abdominal cavity was entered and insufflated to 15 mmHg pressure, which was tolerated well. Diagnostic laparoscopy confirmed moderately redundant sigmoid colon and active sigmoid volvulus. The small bowel was unremarkable. Next a robotic 12-mm trocar was placed along the right lateral abdominal wall 20 cm superior from the pelvis. Two 8 mm ports were placed along the upper abdomen. Ports were placed 10 cm apart from each other including 20 cm away from the target anatomy of the left pelvis. The 12-mm port was exchanged for an 8 mm robotic port at the left upper quadrant. The robot was docked along the left lateral abdomen. The patient was positioned in steep Trendelenburg position at 26-degrees. Using atraumatic graspers and vessel sealer, the robotic system was docked and primed as described. Instruments were interchanged by the help desk assistant including hook cautery, needle industrial truck driver, robotic stapler and vessel sealer. The robot stapler was prepared along the right lateral abdominal wall. The stapler 12-mm port was arranged along the right lateral abdominal wall. Next, attention was brought to identify the sigmoid colon. A stay suture using 3- 0 silk was placed along the anterior serosa of the redundant sigmoid colon. The sigmoid mesentery was mobilized using a vessel sealer whereby the descending colon was marked and tagged. Using multiple fires of the robot stapler 60 mm black load, the proximal sigmoid colon was divided. The mesentery of the sigmoid colon was mobilized towards the pelvic brim and sacral promontory using a vessel sealer. Next, the sigmoid colon was divided using the robotic stapler 60 mm black staple loads. The rest of the sigmoid colon mesentery was mobilized using vessel sealer. Additionally, the sigmoid colon was mobilized onto the colon to minimize injury to the ureters. I went to the foot of the bed to confirm sizers and placement of 29-mm Ethicon powered stapler. I re-scrubbed into the case. The robotic arms were temporarily undocked. A 29-mm anvil was placed with a 3-0 silk sutured at the tip of the anvil associate director of biostatistics. Then the anvil was placed via the left upper quadrant 12 mm port. All robotic arms were re-docked. I went back to the console. The staple line was opened using cautery. The anvil was entered into the proximal descending colon. The colotomy was closed using 60 mm green load. Next, the sharp tip of the anvil associate director of biostatistics was brought through the staple line. The anvil associate director of biostatistics was removed from the abdomen using empty clip appliers. I went to the foot of the bed to place the powered Ethicon 29 mm stapler via the rectum. The anvil and stapler were mated for 1 minute. The doughnuts were intact on both sides and thick. An intraoperative leak test was performed as I inserted the colonoscope to the anastomosis. Endoscopic images were obtained. Irrigation was placed in the pelvis and no air leaks were identified. Irrigation fluid was aspirated from the pelvis until dry. I went back to the console. All sponges and needles were removed from the abdominal cavity. The robot was undocked. I re-scrubbed into the case. Via the left upper quadrant port, the sigmoid colon was removed using 15 mm Endo Catch bag. All sponges were removed from the abdominal cavity. The left upper quadrant incision was widened to 3-cm. No contamination had occurred throughout the case. The fascial defect was oversewn using 0 Vicryl and a Moi Cortes. Next all pneumoperitoneum was evacuated from the abdominal cavity. The 8-mm trocar sites were reapproximated using 4-0 Monocryl in an interrupted subcuticular fashion. Local anesthetic was infiltrated to all wounds for postop analgesia. All incisions were also cleansed with diluted hydrogen peroxide. An advance silver surgical dressing Optifoam was placed over the colon extraction site. Liquid glue was applied to the rest of the skin incisions. The patient had tolerated the procedure well. The patient was extubated successfully. The patient was transferred to the postanesthesia care unit in stable condition. Intraoperative findings were described in detail to the patient's family. Plan - Discharge Summary Discharge Rx Participant: No New Discharge Prescriptions: No Action Rosuvastatin [Crestor] 10 mg PO DAILY Omeprazole [PriLOSEC] 40 mg PO DAILY #90 cap Discharge Medication List Rosuvastatin [Crestor] 10 mg PO DAILY 03/04/23 [History] Omeprazole [PriLOSEC] 40 mg PO DAILY #90 cap 03/06/23 [Rx] Patient Instructions/Handouts: *Surgery [facility] - (Anesthesia) Discharge Instructions Outpatient Surgery, Colonoscopy (DC)
[2023-06-26] MEDS ORDERED: BENZOCAINE/MENTHOL LOZENG 1 EACH LOZENGE MUCOUS MEM PRN (16:52)
[2023-06-26] MEDS ORDERED: METOCLOPRAMIDE 5 MG/ML 2 ML VIAL IVP PRN (16:52)
[2023-06-26] MEDS ORDERED: HYDROmorphone 0.5 MG/0.5 ML SYRINGE IVP ONE ×2 (16:55→17:16)
[2023-06-26] MEDS: LACTATED RINGERS 1,000 ML IV SCH ×2 (17:20→19:03)
[2023-06-26] MEDS ORDERED: fentaNYL PCA 500 MCG/50 ML BAG IV SCH (18:00)
[2023-06-26] MEDS: KETOROLAC 15 MG/ML 1 ML VIAL IVP SCH ×2 (19:14→23:39)
[2023-06-26] MEDS: D5-0.45% NACL WITH KCL 20MEQ/L 1,000 ML IV SCH (19:14)
[2023-06-26] MEDS: ACETAMINOPHEN IV (For NPO) 1,000 MG in EMPTY BAG 1 BAG IVPB SCH ×2 (19:14→23:38)
[2023-06-26] MEDS: HEPARIN SODIUM,PORCINE 5,000 UNIT/ML 1 ML VIAL SQ SCH (20:57)
[2023-06-26] MEDS: HYDROmorphone 1 MG/ML 1 ML SYRINGE IVP PRN (21:04)
[2023-06-27] MEDS: metroNIDAZOLE-NS PMX 500 MG in SALINE 1 100ML.BAG IVPB SCH ×2 (00:41→07:48)
[2023-06-27] MEDS: D5-0.45% NACL WITH KCL 20MEQ/L 1,000 ML IV SCH (02:37)
[2023-06-27] MEDS: HYDROmorphone 1 MG/ML 1 ML SYRINGE IVP PRN (02:40)
[2023-06-27] MEDS: ACETAMINOPHEN IV (For NPO) 1,000 MG in EMPTY BAG 1 BAG IVPB SCH ×2 (04:57→11:49)
[2023-06-27] MEDS: KETOROLAC 15 MG/ML 1 ML VIAL IVP SCH ×2 (04:58→11:48)
[2023-06-27] MEDS: ONDANSETRON 4 MG/2 ML VIAL IVP SCH ×2 (04:58→11:52)
[2023-06-27] MEDS: LACTATED RINGERS 1,000 ML IV SCH ×2 (07:42→11:53)
[2023-06-27] MEDS: HEPARIN SODIUM,PORCINE 5,000 UNIT/ML 1 ML VIAL SQ SCH (07:48)
[2023-06-27] MEDS ORDERED: ALVIMOPAN 12 MG CAPSULE PO SCH (09:00)
[2023-06-27] MEDS: SODIUM CHLORIDE 0.9% 1,000 ML IV SCH (11:19)
[2023-06-27 11:26] LABS: BUN/Creat Ratio 12.43 Ratio (12.00-20.00); Blood Urea Nitrogen 8.7 mg/dL (9.0-27.0); Calcium 9.4 mg/dL (8.7-10.3); Carbon Dioxide 20.7 mmol/L (21.6-31.8); Chloride 108 mmol/L (96-109); Glucose 146 mg/dL (70-110); Potassium 4.6 mmol/L (3.5-5.5); Sodium 140 mmol/L (135-145)
[2023-06-27 13:02] VITALS: BP 123/77; PULSE 74; TEMP 98.7
--- NOTE | 2023-06-27 15:19 | P.DS ---
Providers Date of admission: 06/26/23 15:47 Expected date of discharge: 06/27/23 Attending physician: Jenae Raymond Primary care physician: Raymon Gardner Hospital Course: Discharge diagnosis 1. Sigmoid diverticulitis, chronic 2. Hypertensive heart disease 3. Hyperlipidemia Hospital course The patient is a 67-year-old female who presents with change in bowel habits, sigmoid diverticulosis with tortuous colon. She had prior to the colonoscopy with findings of diverticulosis including intermittent volvulus. Patient is status post Robotic-assisted daVinci Xi sigmoid colectomy with low anterior resection. Patient tolerated surgery well. She is tolerating diet. Her pain is controlled. She has been up and ambulating. She's afebrile. Patient is stable for discharge as long as she is able to void prior to discharge. Physician Machine Engineer note has been reviewed by physician. Signing provider agrees with the documented findings, assessment, and plan of care. Patient Condition at Discharge: Stable Plan - Discharge Summary Discharge Rx Participant: No New Discharge Prescriptions: New Simethicone [Gas-X] 125 mg PO AC-TID PRN #20 capsule PRN Reason: Pain Ibuprofen [Motrin] 600 mg PO Q8HR PRN #30 tab PRN Reason: Pain Acetaminophen Tab [Tylenol Tab] 1,000 mg PO Q6HR PRN #30 tablet PRN Reason: Pain Continue Rosuvastatin [Crestor] 10 mg PO DAILY Omeprazole [PriLOSEC] 40 mg PO DAILY #90 cap Discharge Medication List Rosuvastatin [Crestor] 10 mg PO DAILY 03/04/23 [History] Omeprazole [PriLOSEC] 40 mg PO DAILY #90 cap 03/06/23 [Rx] Acetaminophen Tab [Tylenol Tab] 1,000 mg PO Q6HR PRN #30 tablet 06/27/23 [Rx] Ibuprofen [Motrin] 600 mg PO Q8HR PRN #30 tab 06/27/23 [Rx] Simethicone [Gas-X] 125 mg PO AC-TID PRN #20 capsule 06/27/23 [Rx] Follow up Appointment(s)/Referral(s): Jenae Raymond MD [STAFF PHYSICIAN] - 07/01/23 5:00 pm (TELEHEALTH) Patient Instructions/Handouts: *Sur[facility] - (Anesthesia) Discharge Instructions Outpatient Surgery, Colectomy Diet (GEN), Colonoscopy (DC), [place] paroscopic Bowel Resection (GEN) Activity/Diet/Wound Care/Special Instructions: TELEHEALTH - DR CALLS YOU BETWEEN 8 am and 8 pm EXPECT BOWEL MOVEMENT WITH BLOOD FOR 1 WEEK TAKE LAXATIVE FOR CONSTIPATION AFTER 4 DAYS, 07/01/23 Wear abdominal binder for comfort. No lifting over 4 pounds in 4 weeks Jul 28November shower. No bath tub soaks for two weeks until Jul 10 Avoid steak, tough meats and seeds such as raspberry seeds. See diverticulitis, low fiber, colectomy diet Use Tylenol and ibuprofen scheduled for the next 24-48 hours for best pain relief. Use ice along incisions for today to prevent swelling. Discharge Disposition: HOME SELF-CARE
== END 2023-06-27 15:55 | disposition home or self-care (01) | DRG 329 ==
LOC: ORWHC2ENDO 13:53 → 5NMEDONC 15:36 → ORWHC2ENDO 06-26 15:45 → 5NMEDONC 06-26 15:47
PROVIDERS: ADMIT Surgery Plastic and Reconstructive Surgery; ATTEND Surgery Plastic and Reconstructive Surgery
PROC: 0DJD8ZZ Inspection of Lower Intestinal Tract, Via Natural or Artificial Opening Endoscopic (ICD-10-PCS; 2023-06-25)
PROC: 8E0W4CZ Robotic Assisted Procedure of Trunk Region, Percutaneous Endoscopic Approach (ICD-10-PCS; 2023-06-26)
PROC: 0DJD8ZZ Inspection of Lower Intestinal Tract, Via Natural or Artificial Opening Endoscopic (ICD-10-PCS; 2023-06-26)
PROC: 0DTN4ZZ Resection of Sigmoid Colon, Percutaneous Endoscopic Approach (ICD-10-PCS; principal; 2023-06-26 12:15)
DX: K57.32 Diverticulitis of large intestine without perforation or abscess without bleeding (principal); K56.2 Volvulus; E78.5 Hyperlipidemia, unspecified; G89.29 Other chronic pain; M41.9 Scoliosis, unspecified; M79.7 Fibromyalgia; I10 Essential (primary) hypertension; Z79.899 Other long term (current) drug therapy; Z87.891 Personal history of nicotine dependence; Z90.710 Acquired absence of both cervix and uterus
CPT/HCPCS: 45378; 64999; 80048; 80053; 85025; 86850; 86900; 86901; 94760